=== PATIENT | female | born 1985 | race Caucasian/White ===

== ENCOUNTER 2022-03-02 20:39 | Emergency (ER) | payer OTHER ==
[2022-03-03] MEDS ORDERED: Ketorolac Tromethamine 30 MG/ML VIAL ONE (02:31)
== END 2022-03-03 03:07 | disposition home or self-care (01) ==
LOC: CSHERS 20:39
DX: M25.551 Pain in right hip (principal)
CPT/HCPCS: 72170; 96372; J1885